=== PATIENT | male | born 1990 | race Caucasian/White ===

== ENCOUNTER 2019-11-06 16:25 | Emergency (ER) | payer BC, OTHER ==
[2019-11-07 15:04] LABS: SARS-CoV-2 MS2 Positive; SARS-CoV-2 N Gene Negative; SARS-CoV-2 S Gene Negative; SARS-CoV-2 orf1ab Negative
== END 2019-11-06 16:35 | disposition home or self-care (01) ==
LOC: ERS 16:25
DX: J02.9 Acute pharyngitis, unspecified (principal); Z20.828 Contact with and (suspected) exposure to other viral communicable diseases
CPT/HCPCS: 87635; 99283; U0003